=== PATIENT | female | born 1945 | race Caucasian/White ===

== ENCOUNTER 2018-06-22 12:50 | Emergency (ER) | payer OTHER, MEDICAID ==
[~2018-06-22] VITALS: Ht 165.1 cm; Wt 113.4 kg
[~2018-06-22 12:50] MED LIST: B COMPLEX WITH1 EACH; CAL-MAG TABLET1 EACH; CIPROFLOXACIN500 M1 PO; CLEOCIN HCL150 MG PO; COUMADIN 5 MG TA5 M1 PO; FLEXERIL PO; HYDROCODON-ACE1 EACH PO; KEFLEX500 MG PO; LASIX 20 MG TAB20 MG; MAGNESIUM100 MG; MEDROLDOSEPACK PO; MULTIVITAMINS PO; MULTIVITAMINS1 EAC7; NORETHINDRONE AC5 M1; NORETHINDRONE AC5 MG PO; POTASSIUM99 M1; PREDNISONE 20 M20 MG PO; PREDNISONE50 MG PO; PRILOSEC20 MG PO; VITAMIN D400 UNI1 PO; XARELTO15 MG PO; [UNRECOGNIZED DRUG - OTHER] PO
[2018-06-22 12:51] VITALS: BP 147/98
[2018-06-22] MEDS ORDERED: LASIX 20 MG TAB20 MG PO (12:56)
[2018-06-22] MEDS ORDERED: FLEXERIL PO (13:23)
== END 2018-06-22 13:38 | disposition home or self-care (01) ==
LOC: M.ERS 12:50
DX: S39.012A Strain of muscle, fascia and tendon of lower back, initial encounter (principal); V48.9XXA Unspecified car occupant injured in noncollision transport accident in traffic accident, initial encounter; Y93.89 Activity, other specified; Y92.89 Other specified places as the place of occurrence of the external cause; Y99.8 Other external cause status; M79.7 Fibromyalgia; I25.2 Old myocardial infarction; Z86.73 Personal history of transient ischemic attack (TIA), and cerebral infarction without residual deficits; Z88.1 Allergy status to other antibiotic agents; Z88.2 Allergy status to sulfonamides; Z88.5 Allergy status to narcotic agent